=== PATIENT | male | born 1970 | race Caucasian/White ===

== ENCOUNTER 2022-12-08 04:06 | Day surgery (SDC) | payer OTHER ==
[2022-12-08] VITALS (219 sets, daily range): BP systolic 85–191; BP diastolic 42–118
[~2022-12-08] VITALS: Ht 177.8 cm; Wt 94.2 kg
--- NOTE | 2022-12-08 06:45 | NUR ---
Patient arrived to the [facility] suite, identification and demographics confirmed. Patient to room 10, AAO, ambulatory, vitals obtained, ID/allergy/fall bands placed, changed into hospital gown, SONIYA hose, and non-slip socks. Procedure and timeline explained for treatment and discharge. All questions answered and the patient presents no concerns at this time.
--- NOTE | 2022-12-08 07:23 | NUR ---
Dr. Frost telephoned with patient intake information including usage, dose, last dose/time taken and initial vital signs. Patient history and allergies reviewed with MD. Orders received for 10 mg PO Valium and 5 mg x1 PRN, and 0.2 mg PO Clonidine now. Will reassess per protocol in 1.5 hours and update MD withassessment and vitals.
--- NOTE | 2022-12-08 07:35 | NUR ---
Patient medicated per MD orders. In addition to Clonidine and Valium, patient received 1000 mcg B12 PO, 20 mg Pepcid PO, and Scopolamine TD patch. Medication indication and education provided prior to adminstration.
[2022-12-08 07:51] LABS: BASO% 0.6 % (0-3); HEMATOCRIT 43.7 % (39.0-50.0); HEMOGLOBIN 13.7 g/dl (14.0-18.0); IMMATURE GRANULOCYTES 0.3 % (0.0-5.0); LYMPH% 30.1 % (15-41); MEAN CELL VOLUME 90.3 fL CALC (80.0-100.0); MEAN CORPUSCULAR HGB 28.3 pG CALC (26.0-32.0); MEAN CORPUSCULAR HGB CONC 31.4 g/dL CAL (32.0-36.0); MONO% 10.3 % (2-13); NEUT# 3.65 thou/uL (1.82-7.42); NEUT% 54.7 % (42-76); RED BLOOD COUNT 4.84 mill/uL (4.70-6.10); RED CELL DISTRI WIDTH 13.7 % (11.5-15.5)
--- NOTE | 2022-12-08 08:30 | NUR ---
Patient resting comfortably in bed. Easily aroused, maintains focus, and drifts back to sleep. No signs of active withdrawal or distress noted at this time. Continuous SPO2, rhythm, and respiratory monitoring initiated. IVF @ 250 mL/HR, room air, VSS.
[2022-12-08 08:36] LABS: ALBUMIN 4.5 g/dL (3.2-5.0); ALKALINE PHOSPHATASE 87 u/l (38-126); ANION GAP 10 (6-22 (CALC)); BILIRUBIN, TOTAL 0.2 mg/dL (0.2-1.3); BUN 12 mg/dL (9-20); BUN/CREATININE RATIO 14 (12-20 (CALC)); CARBON DIOXIDE 34 mmol/l (22-30); CHLORIDE 100 mmol/l (95-108); CREATININE 0.8 mg/dL (0.7-1.3); GFR FOR AFR.AMER. > 60 ML/MIN (>=60 (CALC)); GFR OTHER RACES > 60 ML/MIN (>=60 (CALC)); POTASSIUM 4.2 mmol/l (3.5-5.1); SGOT/AST 26 u/l (17-59); SODIUM 139 mmol/l (137-146); TOTAL PROTEIN 7.2 g/dL (6.3-8.2)
--- NOTE | 2022-12-08 09:10 | NUR ---
MD updated with 1.5 hour reassessment. Patient sleeping and vital signs are within pre-treatment parameters. No additional Clonidine or Valium at this time. Continuous monitoring in place.
--- NOTE | 2022-12-08 10:30 | NUR ---
Patient resting comfortably in bed. Easily aroused, maintains focus, and drifts back to sleep. No signs of withdrawal or distress noted at this time.
--- NOTE | 2022-12-08 11:25 | NUR ---
Induction Note Patient to [facility] procedure room 10. Time out performed at 1125, patient placed on hall monitor, Christa hugger, and bilateral wrist restraints were applied for ET tube protection. Versed 5mg given IV push at 1125, tourniquet applied to RIGHT arm, lidocaine 100 mg IVP given at 1128, followed by Rocuronium 10mg IVP at 1128 and held for 45 seconds. Propofol 160 mg IVP given at 1129. Succinylcholine 80 mg IVP at 1129. Smooth intubation with 7.5 ETT @ 22L at 1130. Positive CO2. Positive auscultation for air exchange. Patient placed on ventilator for spontaneous ventilation. Placed on Propofol IV drip at 1130. OG inserted at 1135. Positive air on auscultation. Positive gastric content. Stomach washed at this time.
--- NOTE | 2022-12-08 12:00 | NUR ---
OG close note Stomach washed at this time. Naltrexone 50 mg with Clonidine 0.3 mg via OG tube. OG will be clamped for 45 minutes.
--- NOTE | 2022-12-08 12:45 | NUR ---
OG open note OG open at this time. Gastric content draining into drainage bag. OG to drain for 45 minutes. Propofol will be titrated down based on patient.
--- NOTE | 2022-12-08 13:30 | NUR ---
OG close note Stomach washed at this time. Naltrexone 50 mg with Clonidine 0.2 mg via OG tube. OG will be clamped for 45 minutes.
[2022-12-08] MEDS ORDERED: NALTREXONE50 MG PO (14:14)
[2022-12-08] MEDS ORDERED: CLONIDINE0.1 MG PO (14:15)
[2022-12-08] MEDS ORDERED: KLONOPIN2 MG PO (14:16)
--- NOTE | 2022-12-08 15:15 | NUR ---
OG close note Stomach washed at this time. Naltrexone 50 mg with Clonidine 0.3 mg via OG tube. OG will be clamped for 45 minutes.
--- NOTE | 2022-12-08 17:00 | NUR ---
OG close note Stomach washed at this time. Naltrexone 12.5 mg with Clonidine 0.3 mg via OG tube. OG will be clamped for 45 minutes.
--- NOTE | 2022-12-08 17:40 | NUR ---
Extubation note Closing medications given Benadryl 50mg IV push, Decadron 10mg IV push,Magnesium 4 grams IV, Zofran 8mg IV push, Octreotide 100mcg SC. Stomach washed out prior to extubation. Suctioned gastric content. OG removed. Patient extubated. Propofol Discontinued. Wrist restraints removed. Christa hugger Removed. See [facility] Moderate sedate recovery record for further notes and assessment.
--- NOTE | 2022-12-08 19:00 | NUR ---
PT TRANSFERRED TO [facility] REPORT GIVEN TO FLORIAN GUNN. PT IS AROUSABLE TO TACTILE STIMULI, PT HAS 2LNC, CPAP AT BEDSIDE IF NEEDED. PATIENT IS ALSO ON TELE AND CONTINUOUS PULSE OX. BED ALARM IS ACTIVE.
--- NOTE | 2022-12-08 19:00 | NUR ---
RECEIVED PATIENT TO ROOM 283. BEDSIDE REPORT RECEIVED FROM FLORIAN GOINS. PATIENT RESTING. VSS, O2 @ 2L/NC. PATIENT ON TELEMETRY AND CONTINUOUS PULSE OX. NO DISTRESS NOTED AT THIS TIME. BED ALARM ACTIVATED.
--- NOTE | 2022-12-08 20:28 | NUR ---
PAITNET RESTLESS, MULTIPLE ATTEMPTS TO GET OUT OF BED WITHOUT ASSISTANCE, HALDOL GIVEN.
--- NOTE | 2022-12-09 01:11 | NUR ---
RESTING QUIETLY EYES CLOSED. SATURATION 98% ON 2L/NC. NO DISTRESS NOTED. BED ALARM ACTIVE.
[2022-12-09 03:31] VITALS: BP 166/94
[2022-12-09 05:44] LABS: BASO% 0.1 % (0-3); HEMATOCRIT 43.2 % (39.0-50.0); HEMOGLOBIN 14.2 g/dl (14.0-18.0); IMMATURE GRANULOCYTES 0.1 % (0.0-5.0); LYMPH% 5.7 % (15-41); MEAN CELL VOLUME 86.7 fL CALC (80.0-100.0); MEAN CORPUSCULAR HGB 28.5 pG CALC (26.0-32.0); MEAN CORPUSCULAR HGB CONC 32.9 g/dL CAL (32.0-36.0); MONO% 2.5 % (2-13); NEUT# 14.95 thou/uL (1.82-7.42); NEUT% 91.6 % (42-76); RED BLOOD COUNT 4.98 mill/uL (4.70-6.10); RED CELL DISTRI WIDTH 13.2 % (11.5-15.5)
[2022-12-09 06:01] LABS: ALBUMIN 4.6 g/dL (3.2-5.0); ALKALINE PHOSPHATASE 102 u/l (38-126); BUN 11 mg/dL (9-20); BUN/CREATININE RATIO 18 (12-20 (CALC)); CHLORIDE 100 mmol/l (95-108); CREATININE 0.6 mg/dL (0.7-1.3); GFR FOR AFR.AMER. > 60 ML/MIN (>=60 (CALC)); GFR OTHER RACES > 60 ML/MIN (>=60 (CALC)); POTASSIUM 3.8 mmol/l (3.5-5.1); SGOT/AST 38 u/l (17-59); SODIUM 137 mmol/l (137-146); TOTAL PROTEIN 7.5 g/dL (6.3-8.2)
[2022-12-09 06:03] LABS: ANION GAP 16 (6-22 (CALC)); BILIRUBIN, TOTAL 1.1 mg/dL (0.2-1.3); CARBON DIOXIDE 25 mmol/l (22-30)
[2022-12-09 07:12] VITALS: BP 151/85
--- NOTE | 2022-12-09 08:00 | NUR ---
PT LAYING IN BED ASLEEP, AWAKENED TO VOICE. PT REORIENTED TO PERSON, PLACE AND TIME. IV SITE TO THE RAC, INTACT AND CLEAN. PT IS USING THE BEDSIDE URINAL. TELE LEADS REATTACHED AFTER PT REMOVED. PT HAS CALL LIGHT WITHIN REACH, SAFETY PRECAUTIONS IN PLACE.
[2022-12-09 08:24] VITALS: BP 151/85
--- NOTE | 2022-12-09 10:00 | NUR ---
SPOKE WITH DR. DEE AND VERBAL ORDERS GIVEN TO D/C TELE.
--- NOTE | 2022-12-09 12:00 | NUR ---
PT SITTING IN BED AWAKE AND DROWSY. PT REORIENTED TO PLACE AND TIME. IV TO RAC INTACT AND CLEAN. PT IS GETTING UP WITH ASSISTANCE TO USE THE BATHROOM. PT HAS CALL LIGHT WITHIN REACH AND ALL SAFETY MEASURES IN PLACE.
--- NOTE | 2022-12-09 16:30 | NUR ---
PT SITTING UP ON SIDE OF BED AWAKE AND ALERT. AMBULATING WELL TO BATHROOM. PT HAS NO C/O PAIN AT THIS TIME. PT HAS CALL LIGHT WITHIN REACH AND ALL SAFETY PRECAUTIONS IN PLACE.
--- NOTE | 2022-12-09 17:28 | NUR ---
Discharge instructions given. Patient verbalizes understanding of same. Discharged in stable condition via Wheelchair to Home with family. All belongings sent with pt.
== END 2022-12-09 17:24 | disposition home or self-care (01) | DRG 897 ==
LOC: ANR 04:06 → MS2 04:06 → ANR 09:00 → MS2 18:06 → ANR 12-09 17:24
PROVIDERS: ATTEND Anesthesiology Critical Care Medicine
DX: F11.20 Opioid dependence, uncomplicated (principal)
CPT/HCPCS: J2354; J3475